=== PATIENT | female | born 1990 | race Two or more races ===

== ENCOUNTER 2016-10-06 00:55 | Emergency (ER) | payer BC, MEDICAID ==
[~2016-10-06] VITALS: Ht 157.5 cm; Wt 59.4 kg
[2016-10-06 00:55] VITALS: BP 107/72
== END 2016-10-06 01:03 | disposition left against medical advice (07) ==
LOC: EDBD 00:55 → ER 00:58
DX: R06.02 Shortness of breath (principal); Z53.21 Procedure and treatment not carried out due to patient leaving prior to being seen by health care provider

== ENCOUNTER 2021-01-24 00:34 | Observation (INO) | payer MEDICAID ==
[~2021-01-24] VITALS: Ht 157.5 cm; Wt 77.6 kg
[2021-01-24] MEDS ORDERED: PREN-96 PO (02:10)
== END 2021-01-24 02:16 | disposition home or self-care (01) ==
LOC: LDRP 00:34
PROVIDERS: ADMIT Specialist; ATTEND Specialist
DX: O26.893 Other specified pregnancy related conditions, third trimester (principal); R10.32 Left lower quadrant pain; Z3A.31 31 weeks gestation of pregnancy
CPT/HCPCS: 59025; 76818; 81002; G0378